=== PATIENT | female | born 1955 | race Caucasian/White ===

== ENCOUNTER 2023-07-31 06:29 | Day surgery (SDC) | payer MEDICARE, OTHER, SELFPAY ==
[2023-07-25 13:17] VITALS: BMI 47.4
--- NOTE | 2023-07-26 12:41 | PTCARENOTE ---
ABN ECG reported to Dr. An, no additional orders requested.
--- NOTE | 2023-07-26 12:48 | PTCARENOTE ---
Abn UA and UA C&S results, Phuong at office notified.
[2023-07-31] VITALS (10 sets, daily range): BP systolic 117–147; BP diastolic 62–96; BMI 47.4
[2023-07-31] MEDS: NORMOSOL-R 1000 IV (07:48)
[2023-07-31] MEDS: SUBLIMAZE 25 MCG IV ×3 (11:12→11:36)
== END 2023-07-31 13:26 | disposition home or self-care (01) ==
LOC: SDS 06:29
PROVIDERS: ATTENDING PHYSICIAN Urology; FAMILY PHYSICIAN Family Medicine
DX: Z45.42 Encounter for adjustment and management of neurostimulator (principal); N39.41 Urge incontinence; N32.81 Overactive bladder; N39.0 Urinary tract infection, site not specified
CPT/HCPCS: 64590; 64561; 72170; 76000; C1767; C1778; C1787; L8681